=== PATIENT | female | born 1955 | race Caucasian/White ===

== ENCOUNTER 2020-08-01 14:43 | Emergency (ER) | payer BC ==
[2020-08-01] MEDS ORDERED: Nitroglycerin 2% Ointment 1 INCH/1 GM Packet ONE (15:28)
[2020-08-01 16:38] LABS: #Eosinphils 0.3 10x3/uL (0.0-0.5); #Monocytes 0.5 10x3/uL (0.0-1.1); #Neutrophils 2.9 10x3/uL (1.5-8.4); %Basophils 0.6 % (0.0-2.0); %Eosinophils 5.3 % (0.0-6.0); %Lymphocytes 27.5 % (18.0-47.0); %Neutrophils 56.4 % (40.0-75.0); Hemoglobin 11.4 g/dL (12.0-15.5); Mean Corpuscular Hemoglobin 28.7 pg (27.0-33.0); Mean Corpuscular Volume 86.9 fl (81.6-98.3); Mean Platelet Volume 10.3 fl (7.4-10.4); Platelet Count 248 10x3/uL (150-450); RBC Distribution Width 13.2 % (11.5-14.5); Red Blood Cell (RBC) Count 3.97 10x6/uL (3.90-5.03); White Blood Cell (WBC) Count 5.1 10x3/uL (3.5-10.5)
[2020-08-01 16:51] LABS: ALT (SGPT) 21 U/L (8-55); AST (SGOT) 16 U/L (5-34); Albumin 4.1 g/dL (3.4-4.8); Alkaline Phosphatase 84 U/L (40-110); Anion Gap 16 mmol/L (10-20); BUN (Urea Nitrogen) 14 mg/dL (9.8-20.1); Bilirubin, Total 0.3 mg/dL (0.2-1.2); Calc. Creatinine Clearance 0 mL/min (70-130); Calcium 9.7 mg/dL (7.8-10.44); Carbon Dioxide 28 mmol/L (23-31); Chloride 100 mmol/L (98-107); Glucose 196 mg/dL (80-115); Potassium 5.3 mmol/L (3.5-5.1); Protein, Total 7.1 g/dL (5.8-8.1); Sodium 139 mmol/L (136-145)
[2020-08-01] MEDS ORDERED: Furosemide 40 MG/4 ML VIAL ONE (17:15)
[2020-08-01 17:45] LABS: Anion Gap 15 mmol/L (10-20); BUN (Urea Nitrogen) 13 mg/dL (9.8-20.1); Calc. Creatinine Clearance 0 mL/min (70-130); Calcium 9.9 mg/dL (7.8-10.44); Carbon Dioxide 28 mmol/L (23-31); Chloride 99 mmol/L (98-107); Glucose 164 mg/dL (80-115); Potassium 4.3 mmol/L (3.5-5.1); Sodium 138 mmol/L (136-145)
== END 2020-08-01 18:30 | disposition home or self-care (01) ==
LOC: CSHERS 14:43
DX: I11.0 Hypertensive heart disease with heart failure (principal); I50.9 Heart failure, unspecified; E11.9 Type 2 diabetes mellitus without complications; Z79.82 Long term (current) use of aspirin; Z79.899 Other long term (current) drug therapy
CPT/HCPCS: 71045; 80053; 83880; 84484; 85025; 93005; 94760; 96374; J1940

== ENCOUNTER 2020-09-08 15:28 | Outpatient (CLI) | payer MEDICARE | END 2020-09-08 15:29 | disposition home or self-care (01) | LOC: CSHRAD 15:28 | PROVIDERS: ATTEND Physician Assistant | DX: R07.81 Pleurodynia (principal) ==

== ENCOUNTER 2021-03-12 08:40 | Outpatient (CLI) | payer MEDICARE, OTHER | END 2021-03-12 08:41 | disposition home or self-care (01) | LOC: CSHMAMMO 08:40 | PROVIDERS: ATTEND Surgery | DX: N63.22 Unspecified lump in the left breast, upper inner quadrant (principal) | CPT/HCPCS: 76642; 77066; G0279 ==

== ENCOUNTER 2021-10-02 13:12 | Outpatient (CLI) | payer MEDICARE | END 2021-10-02 13:13 | disposition home or self-care (01) | LOC: CSHMAMMO 13:12 | PROVIDERS: ATTEND Physician Assistant | DX: Z13.820 Encounter for screening for osteoporosis (principal); Z78.0 Asymptomatic menopausal state | CPT/HCPCS: 77080 ==

== ENCOUNTER 2022-08-25 09:55 | Outpatient (CLI) | payer MEDICARE | END 2022-08-25 09:56 | disposition home or self-care (01) | LOC: CSHMAMMO 09:55 | PROVIDERS: ATTEND Physician Assistant | DX: Z12.31 Encounter for screening mammogram for malignant neoplasm of breast (principal); Z85.89 Personal history of malignant neoplasm of other organs and systems | CPT/HCPCS: 77063; 77067 ==

== ENCOUNTER 2022-08-27 07:53 | Outpatient (CLI) | payer MEDICARE | END 2022-08-27 07:54 | disposition home or self-care (01) | LOC: CSHULT 07:53 | PROVIDERS: ATTEND Physician Assistant | DX: N63.20 Unspecified lump in the left breast, unspecified quadrant (principal) ==

== ENCOUNTER 2023-03-08 13:32 | Outpatient (CLI) | payer MEDICARE | END 2023-03-08 13:33 | disposition home or self-care (01) | LOC: CSHMAMMO 13:32 | PROVIDERS: ATTEND Physician Assistant | DX: R92.8 Other abnormal and inconclusive findings on diagnostic imaging of breast (principal) | CPT/HCPCS: 77065; G0279 ==

== ENCOUNTER 2024-03-12 13:16 | Outpatient (CLI) | payer MEDICARE | END 2024-03-12 13:17 | disposition home or self-care (01) | LOC: CSHMAMMO 13:16 | PROVIDERS: ATTEND Physician Assistant | DX: Z12.31 Encounter for screening mammogram for malignant neoplasm of breast (principal); Z78.0 Asymptomatic menopausal state; M85.851 Other specified disorders of bone density and structure, right thigh; M85.852 Other specified disorders of bone density and structure, left thigh | CPT/HCPCS: 77063; 77067; 77080 ==

== ENCOUNTER 2024-04-08 12:56 | Inpatient (IN) | payer MEDICARE ==
[2024-04-08 14:21] LABS: Bilirubin Neg (Negative); Blood, Urine Negative (Negative); Clarity Clear (Clear); Glucose, Urine (Dipstick) Normal (Negative); Ketone, Urine Negative (Negative); Leukocyte Negative (Negative); Nitrite Positive (Negative); Protein, Urine (Dipstick) 100 mg/dl (Neg-Trace); Urobilinogen Normal mg/dL (Less than 2)
[2024-04-08 14:24] LABS: #Basophils 0.06 10x3/uL (0.0-0.2); #Eosinophils 0.13 10x3/uL (0.0-0.5); #Monocytes 0.37 10x3/uL (0.0-1.1); #Neutrophils 4.87 10x3/uL (1.5-8.4); %Basophils 0.9 % (0.0-2.0); %Lymphocytes 17.3 % (18.0-47.0); %Monocytes 5.6 % (0.0-10.0); Hemoglobin 12.6 g/dL (12.0-15.5); Mean Corpuscular HGB CONC 34.1 g/dL (32.0-36.0); Mean Corpuscular Hemoglobin 29.8 pg (27.0-33.0); Mean Corpuscular Volume 87.5 fL (81.6-98.3); Mean Platelet Volume 10.3 fL (7.4-10.4); Platelet Count 296 10x3/uL (150-450); RBC Distribution Width 12.3 % (11.5-14.5); Red Blood Cell (RBC) Count 4.23 10x6/uL (3.90-5.03); White Blood Cell (WBC) Count 6.6 10x3/uL (3.5-10.5)
[2024-04-08 14:40] LABS: ALT (SGPT) 8 U/L (8-55); AST (SGOT) 16 U/L (5-34); Albumin 3.7 g/dL (3.4-4.8); Alkaline Phosphatase 66 U/L (40-110); Anion Gap 16 mmol/L (10-20); BUN (Urea Nitrogen) 30 mg/dL (9.8-20.1); Bilirubin, Total 0.4 mg/dL (0.2-1.2); Calc. Creatinine Clearance 0 mL/min (70-130); Calcium 9.4 mg/dL (7.8-10.44); Carbon Dioxide 24 mmol/L (23-31); Chloride 102 mmol/L (98-107); Estimated GFR 23; Globulin 3.4 g/dL (2.4-3.5); Glucose 185 mg/dL (80-115); Potassium 4.1 mmol/L (3.5-5.1); Protein, Total 7.1 g/dL (5.8-8.1); Sodium 138 mmol/L (136-145)
[2024-04-08 14:41] LABS: RBC/HPF None Seen HPF (0-3)
[2024-04-08 14:42] LABS: Bacteria/HPF 4+ HPF (None Seen); CAUTI Indications for Culture Alt mental st,lethar; Mucous/LPF 1+ LPF (<2+); Squamous Epithelial 0-3 HPF (0-3); Urine Culture Reflex No No; WBC/HPF 0-3 HPF (0-3)
[2024-04-08] MEDS ORDERED: cefTRIAXone (ROCEPHIN) 2 GM VIAL ONE (14:54)
[2024-04-08] MEDS ORDERED: Lorazepam 2 MG/ML VIAL ONE (16:27)
[2024-04-08] MEDS ORDERED: hydrOXYzine 25 MG TAB ONE (16:28)
[2024-04-08] MEDS ORDERED: hydrALAZINE 25 MG TAB ONE (17:14)
[2024-04-08 18:21] LABS: Troponin I 0.037 ng/mL (< 0.028)
[2024-04-08] MEDS ORDERED: Glucagon 1 MG/ML KIT IM PRN (21:12)
[2024-04-08] MEDS ORDERED: Calcium Carbonate 500 MG ChewTAB PO PRN (21:12)
[2024-04-08] MEDS ORDERED: Zolpidem Tartrate 5 MG TAB PO PRN (21:12)
[2024-04-08] MEDS ORDERED: Ondansetron PF 4 MG/2 ML Vial IVP PRN (21:12)
[2024-04-08] MEDS ORDERED: Dextrose 50% Abboject 50 ML SYRINGE SLOW IVP PRN (21:12)
[2024-04-08] MEDS ORDERED: Senokot S 8.6-50 MG TAB PO PRN (21:12)
[2024-04-08] MEDS ORDERED: Insulin Lispro 100 UNIT/ML 10 ML VIAL SC PRN (21:12)
[2024-04-08] MEDS ORDERED: Dextrose 5% in Water 1,000 ML IV PRN (21:12)
[2024-04-08 21:16] VITALS: BMI 33.6
[2024-04-08] MEDS: hydrALAZINE 25 MG TAB PO SCH (21:46)
[2024-04-08] MEDS: Sodium Chloride 0.9% 500 ML IV SCH (21:47)
[2024-04-08] MEDS: clonazePAM 0.5 MG TAB PO PRN (22:28)
[2024-04-08 22:39] LABS: Troponin I 0.044 ng/mL (< 0.028)
[2024-04-09] MEDS: hydrALAZINE 20 MG/ML VIAL SLOW IVP PRN (03:07)
[2024-04-09 04:25] LABS: Anion Gap 15 mmol/L (10-20); BUN (Urea Nitrogen) 27 mg/dL (9.8-20.1); Calc. Creatinine Clearance 35 mL/min (70-130); Calcium 8.5 mg/dL (7.8-10.44); Carbon Dioxide 24 mmol/L (23-31); Chloride 105 mmol/L (98-107); Estimated GFR 27; Glucose 103 mg/dL (80-115); Potassium 3.2 mmol/L (3.5-5.1); Sodium 141 mmol/L (136-145)
[2024-04-09] MEDS: Potassium Chloride 20 MEQ TAB PO SCH (06:13)
[2024-04-09] MEDS: NIFEdipine XL 30 MG ER.TAB PO SCH (08:15)
[2024-04-09] MEDS: Isosorbide Mononitrate 30 MG ER.TAB PO SCH (08:15)
[2024-04-09] MEDS: Glimepiride 4 MG TAB PO SCH (08:15)
[2024-04-09] MEDS: hydrALAZINE 25 MG TAB PO SCH (08:15)
[2024-04-09] MEDS: Enoxaparin 30 MG (0.3 mL) SYRINGE SC SCH (08:15)
[2024-04-09] MEDS: FLU (Fluad Triv) TS24-25 (65UP)/MF59C/PF 45 MCG/0.5 ML Syringe IM ONE (08:16)
[2024-04-09] MEDS ORDERED: hydrALAZINE 25 MG TAB PO SCH (09:00)
[2024-04-09] MEDS ORDERED: Isosorbide Mononitrate 30 MG ER.TAB PO SCH (09:00)
[2024-04-09] MEDS: Carvedilol 6.25 MG TAB PO SCH ×2 (11:37→17:33)
[2024-04-09] MEDS: Amlodipine 5 MG TAB PO SCH (11:38)
[2024-04-09 13:14] LABS: Hemoglobin A1c 6.6 % (4.0-6.0)
[2024-04-09] MEDS: cefTRIAXone\\ROCEPHIN 1 GM in Sodium Chloride 0.9% 100 ML IVPB SCH (15:32)
[2024-04-09] MEDS: Pregabalin 75 MG CAP PO SCH (22:28)
[2024-04-10 04:05] LABS: Anion Gap 14 mmol/L (10-20); BUN (Urea Nitrogen) 26 mg/dL (9.8-20.1); Calc. Creatinine Clearance 35 mL/min (70-130); Calcium 8.5 mg/dL (7.8-10.44); Carbon Dioxide 25 mmol/L (23-31); Chloride 107 mmol/L (98-107); Estimated GFR 26; Glucose 112 mg/dL (80-115); Potassium 3.9 mmol/L (3.5-5.1); Sodium 142 mmol/L (136-145)
[2024-04-10] MEDS: Cholecalciferol (Vitamin D3) 400 UNITS TAB PO SCH (08:19)
[2024-04-10] MEDS: Amlodipine 5 MG TAB PO SCH (08:20)
[2024-04-10] MEDS: Acetaminophen 325 MG TAB PO PRN (08:26)
[2024-04-10] MEDS ORDERED: Carvedilol 6.25 MG TAB PO SCH ×2 (08:55→17:00)
[2024-04-10 12:00] VITALS: BP 192/75; TEMP 97.7
== END 2024-04-10 14:02 | disposition home or self-care (01) | DRG 73 ==
LOC: CSHERS 12:56 → CSHTELE 18:44 → OBSVTOIN 04-09 14:44
PROVIDERS: ADMIT Internal Medicine; ATTEND Family Medicine
DX: E11.40 Type 2 diabetes mellitus with diabetic neuropathy, unspecified (principal); I50.33 Acute on chronic diastolic (congestive) heart failure; N17.9 Acute kidney failure, unspecified; I13.0 Hypertensive heart and chronic kidney disease with heart failure and stage 1 through stage 4 chronic kidney disease, or unspecified chronic kidney disease; N39.0 Urinary tract infection, site not specified; N18.30 Chronic kidney disease, stage 3 unspecified; E11.22 Type 2 diabetes mellitus with diabetic chronic kidney disease; J45.909 Unspecified asthma, uncomplicated; G47.33 Obstructive sleep apnea (adult) (pediatric); I25.10 Atherosclerotic heart disease of native coronary artery without angina pectoris; Z95.5 Presence of coronary angioplasty implant and graft; Z79.899 Other long term (current) drug therapy
CPT/HCPCS: 36415; 36416; 70450; 70551; 71045; 80048; 80053; 81001; 83036; 83880; 84443; 84484; 85025; 93005; 93306; 96372; 96374; 96375; G0378; J0360; J0696; J1650; J2060; J7030